=== PATIENT | female | born 1995 | race Two or more races ===

== ENCOUNTER → 2018-08-29 | Outpatient (CLI) | payer OTHER ==
[~2018-08-29] MED LIST: IOPAMIDOL 370 MG/ML 200 ML INFUS..BTL INJ ONE; SODIUM CHLORIDE 0.9% 50ML 50 ML ONE
--- NOTE | 2018-08-29 15:57 | Diagnostic Imaging Report ---
Examination:CT SOFT TISSUE NECK WITH CONTRAST History: Neck and left face pain. History thyroid cancer. Comparison studies: None Technique: Axial images from the skull base to the thoracic inlet Coronal and sagittal reformatted images. Dose modulation, iterative reconstruction, and/or weight based adjustment of the mA/kV was utilized to reduce the radiation dose to as low as reasonably achievable. Intravenous contrast: 100mL of Isovue 370. Findings: Soft tissues: No abnormalities. Aerodigestive tract: No abnormality. Lymph nodes: No radiographically significant adenopathy. Vessels: Arteries and veins are patent. Thyroid gland: Normal in size and homogeneous on the left. Partial resection of the right thyroid with surgical clips in the bed. Submandibular glands: Normal in size and homogeneous. Parotid glands: Normal in size and homogeneous. Orbits: No abnormalities. Paranasal sinuses: Partial opacification on the right frontal and left sphenoid sinuses. Temporal bones: No abnormalities. Skull base and facial bones: Intact. Cervical spine: No disc bulge or herniation or foraminal or canal stenosis. Visualized lung apices: No abnormalities. IMPRESSION: Partial right thyroidectomy. No adenopathy. Partial opacification on the right frontal and left sphenoid sinuses. Signed by: Dr. Crystal Sinha M.D. on 08/29/2018 4:24 PM
== END ==
LOC: CT 14:12
DX: M54.2 Cervicalgia (principal); Z85.850 Personal history of malignant neoplasm of thyroid
CPT/HCPCS: 70491; 81025; Q9967